=== PATIENT | female | born 1990 | race Caucasian/White ===

== ENCOUNTER 2018-06-13 16:42 | Emergency (ER) | payer MEDICARE, OTHER ==
[2018-06-13 17:00] VITALS: RESP 18
[2018-06-13] MEDS ORDERED: ACETAMINOPHEN TAB 500 MG TAB PO STA (17:59)
--- NOTE | 2018-06-13 18:01 | ED ---
Head Injury HPI - General Chief complaint: Head Injury Stated complaint: Head injury Time Seen by Provider: 06/13/18 17:49 Source: patient, RN notes reviewed Mode of arrival: ambulatory Limitations: no limitations - History of Present Illness Initial comments: This is a 28-year-old female who presents to the emergency department with chief complaint of head injury. Patient states that she recently moved to the area. She states that when she was moving into her apartment one week ago she accidentally hit herself in the forehead with the bathroom door. Patient states that she "saw stars." She states that her forehead on the right side instantly swelled up. She states that she developed a large bruise. Patient states that since that time she has had an intermittent headache on that side. Patient states that it has worsened. She states that she woke up at 2 AM last night and the right side of her head felt "heavy, like it is full water." Patient states that she was able to go back to bed but when she woke up at 5 AM she started vomiting. Patient states that she did take a Zofran at 12:30 which helped with the nausea. She continues to have a throbbing right-sided headache. Patient states she is concerned because her younger sister from a brain injury. She states that she called her mother to come watch her kids so that she could come to the emergency department for further evaluation. Patient denies any neck or back pain. She denies fevers or chills, chest pain or shortness of breath, abdominal pain, weakness or dizziness. She does state that she sometimes has some blurriness in the right outer eye. Patient states that she has not taken anything for her headache today. - Related Data Home Medications Medication Instructions Recorded Confirmed Albuterol Inhaler [Ventolin Hfa 2 puff INHALATION RT-Q6H PRN 06/13/18 06/13/18 Inhaler] Albuterol Nebulized [Ventolin 2.5 mg INHALATION RT-Q6H PRN 06/13/18 06/13/18 Nebulized] Docusate [Colace] 100 mg PO BID 06/13/18 06/13/18 Fluticasone Propionate [Flovent 2 puff INHALATION RT-BID 06/13/18 06/13/18 Diskus] Montelukast [Singulair] 10 mg PO DAILY 06/13/18 06/13/18 Naproxen Sodium [Aleve] 220 mg PO DAILY PRN 06/13/18 06/13/18 Norethindrone-E.estradiol-Iron 1 tab PO DAILY 06/13/18 06/13/18 [June 24 Tablet] Omeprazole [PriLOSEC] 20 mg PO DAILY 06/13/18 06/13/18 Ondansetron [Zofran] 4 mg PO Q12HR PRN 06/13/18 06/13/18 Pantoprazole Sodium [Protonix] 20 mg PO DAILY 06/13/18 06/13/18 Polyethylene Glycol 3350 [Miralax] 17 gm PO DAILY 06/13/18 06/13/18 Ranitidine HCl [Zantac] 150 mg PO BID 06/13/18 06/13/18 Sucralfate [Carafate] 1 gm PO BID 06/13/18 06/13/18 Allergies/Adverse reactions: Allergies Allergy/AdvReac Type Severity Reaction Status Date / Time No Known Allergies Allergy Verified 06/13/18 18:23 Review of Systems ROS Statement: Those systems with pertinent positive or pertinent negative responses have been documented in the HPI. ROS Other: All systems not noted in ROS Statement are negative. Past Medical History Past Medical History: Asthma, GERD/Reflux Additional Past Medical History / Comment(s): IBS, endometriosis History of Any Multi-Drug Resistant Organisms: None Reported Past Surgical History: Appendectomy, Cholecystectomy Additional Past Surgical History / Comment(s): forearm surgery, left wrist surgery, colonoscopy, endoscope. D&C Past Psychological History: Anxiety, Depression Smoking Status: Former smoker Past Alcohol Use History: Rare Past Drug Use History: Marijuana General Exam - General Exam Comments Initial Comments: General: Awake and alert, well-developed; in no apparent distress. HEENT: Head atraumatic, normocephalic. Pupils are equal, round and reactive to light. Extraocular movements intact. Oropharynx moist without erythema or exudate. Neck: Supple. Normal ROM. Cardiovascular: Regular rate and rhythm. No murmurs, rubs or gallops. Chest symmetrical. Respiratory: Lungs clear to auscultation bilaterally. No wheezes, rales or rhonchi. Normal respiratory effort with no use of accessory muscles. Musculoskeletal: Normal ROM, no tenderness, strength 5/5 bilateral upper and lower extremities. Ambulating normally. Skin: [place], warm and dry without rashes or lesions. Neurological: Alert and oriented x3. CN II-XII grossly intact. Speech is fluent and answers are appropriate. No focal neuro deficits. Psychiatric: Normal mood and affect. No overt signs of depression or anxiety noted. Limitations: no limitations Course Vital Signs 06/13/18 16:53 Temperature 98.3 F Pulse Rate 80 Respiratory 18 Rate Blood Pressure 114/74 O2 Sat by Pulse 99 Oximetry Medical Decision Making - Medical Decision Making This is a 28-year-old female presents to the emergency department chief complaint of head injury. Patient reports hitting her forehead with a door approximately one week ago. She states that she has had intermittent headaches. Patient states her headache worsened last night. She describes it as throbbing, pressure-like and feeling like there is "water in my head." Patient denies any loss of consciousness. She does state that she began vomiting this morning and became concerned as her sister from a brain injury. Patient is neurovascularly intact. No focal neuro deficits. No weakness. No hematomas are noted. Computed tomography scan of the brain revealed no acute abnormalities. Patient likely suffering from a concussion. Patient's vital signs are stable and she is in no acute distress. She has had no vomiting episodes in the emergency department. She was given Tylenol for headache. Patient will be discharged home at this time. All questions answered. - Radiology Data Radiology results: report reviewed CT of the brain without contrast impression: Negative computed tomography scan of the brain. Disposition Clinical Impression: Concussion without loss of consciousness Disposition: HOME SELF-CARE Condition: Good Instructions: Concussion (ED) Additional Instructions: Please follow up with primary care provider within 1-2 days. Return to emergency department if symptoms should worsen or any concerns arise. Is patient prescribed a controlled substance at d/c from ED?: No Referrals: Ines Walls DO [Primary Care Provider] - 1-2 days Ping Goldsmith MD [STAFF PHYSICIAN] - 1-2 days Time of Disposition: 18:56
--- NOTE | 2018-06-13 18:45 | CT ---
EXAMINATION TYPE: CT brain wo con DATE OF EXAM: 06/13/2018 COMPARISON: None HISTORY: [place] after right sided head injury CT DLP: 1008.5 mGycm. Automated Exposure Control for Dose Reduction was Utilized. TECHNIQUE: CT scan of the head is performed without contrast. FINDINGS: The ventricles and sulci appear normal. There is no mass effect nor midline shift. There is no sign of intracranial hemorrhage. The calvarium is intact. IMPRESSION: Negative CT scan of the brain.
[2018-06-13 19:16] VITALS: BP 105/59; PULSE 98; TEMP 98.1
== END 2018-06-13 19:14 | disposition home or self-care (01) ==
LOC: EC 16:42
DX: S06.0X0A Concussion without loss of consciousness, initial encounter (principal); J45.909 Unspecified asthma, uncomplicated; K21.9 Gastro-esophageal reflux disease without esophagitis; Z87.891 Personal history of nicotine dependence; Z79.51 Long term (current) use of inhaled steroids; Z79.3 Long term (current) use of hormonal contraceptives; Z79.899 Other long term (current) drug therapy; W22.8XXA Striking against or struck by other objects, initial encounter
CPT/HCPCS: 70450; 99283